=== PATIENT | male | born 2000 | race Caucasian/White ===

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

== ENCOUNTER 2023-11-30 15:55 | Emergency (ER) | payer OTHER | END 2023-11-30 17:30 | disposition home or self-care (01) | LOC: FB.ED 15:55 | DX: S61.213A Laceration without foreign body of left middle finger without damage to nail, initial encounter (principal); W23.0XXA Caught, crushed, jammed, or pinched between moving objects, initial encounter | CPT/HCPCS: 12001; 73130-LT; 99000; 99283 ==

== ENCOUNTER 2024-04-02 06:44 | Day surgery (SDC) | payer OTHER ==
[2024-04-02] MEDS ORDERED: Lactated Ringers 1,000 ML IV ONE (06:45)
[2024-04-02] MEDS ORDERED: Ketorolac 30 MG/ML SDV IVPUSH ONE (06:45)
[2024-04-02] MEDS ORDERED: Rocuronium 100 MG/10 ML MDV IV ONE (06:45)
[2024-04-02] MEDS ORDERED: Propofol 200 MG/20 ML SDV IV ONE (06:45)
[2024-04-02] MEDS ORDERED: Ondansetron 4 MG/2 ML SDV IVPUSH ONE (06:45)
[2024-04-02] MEDS ORDERED: Dexamethasone 4 MG/ML 5 ML MDV IVPUSH ONE (06:45)
[2024-04-02] MEDS ORDERED: fentaNYL 100 MCG/2 ML SDV IV ONE (06:45)
[2024-04-02] MEDS ORDERED: Midazolam 1 MG/ML 2 ML SDV IV ONE (06:45)
[2024-04-02] MEDS ORDERED: Neostigmine Methylsulfate 10 MG/10 ML MDV IVPUSH ONE (06:45)
[2024-04-02] MEDS ORDERED: Succinylcholine 200 MG/10 ML MDV IV ONE (06:45)
[2024-04-02] MEDS ORDERED: Sodium Chloride 0.9% 10 ML Syringe FLUSH PRN (06:45)
[2024-04-02] MEDS ORDERED: Glycopyrrolate 0.2 MG/ML 5 ML MDV IV ONE (06:45)
[2024-04-02] MEDS: Lactated Ringers 1,000 ML IV SCH (07:50)
[2024-04-02] MEDS: Acetaminophen/HYDROcodone 325-5 MG Tab PO ONE (10:45)
== END 2024-04-02 12:10 | disposition home or self-care (01) ==
LOC: FB.SDS 06:44
PROVIDERS: ATTEND Surgery
DX: K81.1 Chronic cholecystitis (principal); E66.9 Obesity, unspecified; Z68.38 Body mass index [BMI] 38.0-38.9, adult
CPT/HCPCS: 00790; 88304; A9270-GY; J0330; J1100; J1596; J1885; J2250; J2405; J2704; J2710; J3010; J7120

== ENCOUNTER 2025-01-08 20:11 | Emergency (ER) | payer OTHER ==
[2025-01-08] MEDS ORDERED: Acetaminophen/oxyCODONE 325-5 MG Tab PO ONE (20:12)
[2025-01-08] MEDS: Ketorolac 30 MG/ML SDV IM ONE (20:48)
[2025-01-08 20:52] LABS: BILIRUBIN,URINE NEGATIVE (NEGATIVE); GLUCOSE,URINE NORMAL (NORMAL); KETONES,URINE NEGATIVE (NEGATIVE); LEUKOCYTE ESTERASE,URINE NEGATIVE (NEGATIVE); NITRITE,URINE NEGATIVE (NEGATIVE); OCCULT BLOOD,URINE LARGE (NEGATIVE); PROTEIN,URINE 30 mg/dL (NEGATIVE); UROBILINOGEN,URINE NORMAL (NEGATIVE)
[2025-01-08 20:54] LABS: APPEARANCE,URINE CLEAR (CLEAR); COLOR,URINE YELLOW (YELLOW)
[2025-01-08 20:55] LABS: BACTERIA,URINE OCCASIONAL (NS); SQUAMOUS EPITHELIAL CELLS,UR OCCASIONAL (NS,R,O); WBC,URINE 0-5 (0-5)
[2025-01-08] MEDS: HYDROmorphone 2 MG/ML SDV IM ONE (21:53)
[2025-01-08] MEDS: hydrOXYzine HCl 50 MG/ML SDV IM ONE (21:53)
== END 2025-01-08 22:06 | disposition home or self-care (01) ==
LOC: FB.ED 20:11
DX: N13.2 Hydronephrosis with renal and ureteral calculous obstruction (principal); E66.9 Obesity, unspecified; Z68.38 Body mass index [BMI] 38.0-38.9, adult; Z86.16 Personal history of COVID-19
CPT/HCPCS: 74176; 81001; 96372; 99284; A9270; J1171; J1885; J3410

== ENCOUNTER 2025-03-27 16:34 | Emergency (ER) | payer OTHER ==
[2025-03-27] MEDS: Lidocaine/Epineph/Tetracaine 3 ML Syringe TOP ONE (16:50)
== END 2025-03-27 17:54 | disposition home or self-care (01) ==
LOC: FB.ED 16:34
DX: S61.012A Laceration without foreign body of left thumb without damage to nail, initial encounter (principal); Z79.899 Other long term (current) drug therapy; Z86.16 Personal history of COVID-19; W26.8XXA Contact with other sharp object(s), not elsewhere classified, initial encounter; Y93.89 Activity, other specified
CPT/HCPCS: 12002; 36415; 99000; 99282; 99283; A9270-GY; G0480; J2003